=== PATIENT | male | born 1950 | race Caucasian/White ===

== ENCOUNTER 2022-05-26 11:46 | Inpatient (IN) | payer MEDICARE, OTHER ==
[~2022-05-26] VITALS: Ht 167.6 cm; Wt 55.3 kg
--- NOTE | 2022-05-26 12:14 | NUR ---
PT IS IN ROOM #1A. DR FOWLER EVALUATED THE PT.
[2022-05-26 12:31] LABS: HEMATOCRIT 41.8 % (36.7-47.1); MEAN CORPUSCULAR HEMOGLOBIN 31.6 uug (23.8-33.4); PLATELET COUNT (AUTO) 232 K/uL (152-348)
[2022-05-26 12:42] LABS: CARBON DIOXIDE 36 mmol/L (21-32); CHLORIDE 114 mmol/L (98-107); GLUCOSE 114 mg/dL (74-106); POTASSIUM 3.5 mmol/L (3.5-5.1); UREA NITROGEN, BLOOD 35 mg/dL (7-18)
[2022-05-26 12:47] LABS: ALANINE AMINOTRANSFERASE 8 U/L (16-63); ALKALINE PHOSPHATASE 62 U/L (50-136); ASPARTATE AMINOTRANSFERASE 12 U/L (15-37); BILIRUBIN,DIRECT 0.2 mg/dL (0.0-0.2); BILIRUBIN,TOTAL 0.6 mg/dL (0.2-1.0); TOTAL PROTEIN, SERUM 7.8 g/dL (6.4-8.2)
[2022-05-26 12:55] LABS: THYROID STIMULATING HORMONE 1.588 mIU/mL (0.358-3.740)
[2022-05-26] MEDS ORDERED: ATOR10TA PO (13:11)
[2022-05-26] MEDS ORDERED: KEPPRA 100 MG/ML PO (13:11)
[2022-05-26] MEDS ORDERED: LOSA50TA39 PO (13:11)
[2022-05-26] MEDS ORDERED: ACET-2154 PO (13:11)
[2022-05-26] MEDS ORDERED: MEMA10TA PO (13:11)
[2022-05-26] MEDS ORDERED: ACET-73 PO (13:11)
[2022-05-26] MEDS ORDERED: DOCU-141 PO (13:11)
[2022-05-26] MEDS ORDERED: CRAN425C6 PO (13:11)
[2022-05-26] MEDS ORDERED: DIPH25CA83 PO (13:11)
[2022-05-26] MEDS ORDERED: DEXT15DR6 EACHEYE (13:11)
[2022-05-26] MEDS ORDERED: AMIN30LI2 PO (13:11)
[2022-05-26] MEDS ORDERED: DIVA125C2 PO (13:11)
--- NOTE | 2022-05-26 15:28 | NUR ---
REPORT WAS GIVEN TO FIELD ASSEMBLY SUPERVISOR. PT WAS TRANSFERED TO ROOM #201A.
[2022-05-26 17:00] VITALS: BP 140/79
--- NOTE | 2022-05-26 19:00 | NUR ---
Received patient in bed confused, non verbal, no sob no chest pain, tele monitor sinus rhythm at this time, cont to monitor.
[2022-05-26] MEDS ORDERED: JEVITY 1.2 1000 ML LIQUID GT PRN (20:30)
[2022-05-26] MEDS ORDERED: IV NS 1000 ML 1,000 ML IV SCH (20:30)
[2022-05-26 21:00] VITALS: BP 134/74
[2022-05-26] MEDS ORDERED: VANCOMYCIN IV 1,000 MG in IV DEXTROSE 5% 250 ML IV SCH (21:00)
[2022-05-26] MEDS ORDERED: ACETAMINOPHEN 650 MG/20.3 ML LIQUID UDC GT PRN (21:00)
--- NOTE | 2022-05-26 21:11 | NUR ---
Dr Mendiola called the station and give admission order.
[2022-05-26] MEDS ORDERED: VANCOMYCIN IV 200 ML ONE (22:12)
[2022-05-26] MEDS ORDERED: PIPERACILLIN/TAZOBACTAM/D5W 50 ML IV ONE ×2 (22:14→22:15)
[2022-05-26] MEDS: MEMANTINE HCL 5 MG TABLET NG SCH (22:39)
[2022-05-26] MEDS: VALPROIC ACID 250 MG/5 ML LIQUID UDC NG SCH (22:39)
[2022-05-26] MEDS: ATORVASTATIN 10 MG TABLET NG SCH (22:39)
[2022-05-26] MEDS: PIPERACILLIN SODIUM/TAZOBACTAM 3.375 G in IV DEXTROSE 5% 50 ML IV SCH (22:45)
[2022-05-27 01:00] VITALS: BP 135/77
[2022-05-27] MEDS: PIPERACILLIN SODIUM/TAZOBACTAM 3.375 G in IV DEXTROSE 5% 50 ML IV SCH ×3 (05:28→18:06)
[2022-05-27 05:49] VITALS: BP 139/76
--- NOTE | 2022-05-27 06:24 | NUR ---
PATIENT AWAKE BUT NON VERBAL, ABLE TO FOLLOW INSTRUCTIONS, HOB ELEVATED, NGT WITH JEVITY 1.2 AT 30ML PER HOUR TOLERATE WELL NO NAUSEA NO VOMITING, NO DIARRHEA NOTED, NGT INSERTION TOLERATE WELL, CXR DONE PRIOR FEEDING AND FLUSHING OF WATER. PATIENT HAS BM, VOIDING WELL, NO S/S OF ACUTE PAIN, TELE SINUS RHYTHM, CONT TO MONITOR.
[2022-05-27] MEDS: PROTEIN SUPPLEMENT (PROSTAT) 30 ML LIQUID NG SCH (08:00)
[2022-05-27] MEDS ORDERED: LOSARTAN POTASSIUM 50 MG TABLET NG SCH (09:00)
[2022-05-27] MEDS: levETIRAcetam 500 MG/5 ML LIQUID UDC NG SCH ×2 (09:59→21:00)
[2022-05-27] MEDS: VANCOMYCIN IV 750 MG in IV DEXTROSE 5% 250 ML IV SCH ×2 (10:00→21:00)
[2022-05-27] MEDS: MEMANTINE HCL 5 MG TABLET NG SCH ×2 (10:00→21:01)
[2022-05-27] MEDS: DOCUSATE SODIUM 100 MG/10 ML LIQUID UDC NG SCH (10:00)
[2022-05-27] MEDS: VALPROIC ACID 250 MG/5 ML LIQUID UDC NG SCH ×2 (10:00→21:00)
[2022-05-27] MEDS: LOSARTAN POTASSIUM 50 MG TABLET NG SCH ×2 (10:04→17:59)
[2022-05-27 11:23] VITALS: BP 139/70
[2022-05-27] MEDS ORDERED: ACETAMINOPHEN 325 MG TABLET-SA PATIENTS-PAIN ONLY PO PRN (13:45)
[2022-05-27] MEDS ORDERED: Medication Not On Formulary EA (Amino Acids/Protein Hydrolys (Pro-Stat Liquid) 30 ML) PO SCH (13:45)
[2022-05-27] MEDS ORDERED: DIVALPROEX SPRINKLE 125 MG CAP.SPRINK PO SCH (13:45)
[2022-05-27] MEDS ORDERED: MEMANTINE HCL 10 MG TABLET PO SCH (13:45)
[2022-05-27] MEDS ORDERED: diphenhydrAMINE 25 MG CAP PO PRN (13:45)
[2022-05-27] MEDS ORDERED: DOCUSATE SODIUM 100 MG CAPSULE PO SCH (13:45)
[2022-05-27] MEDS ORDERED: Medication Not On Formulary EA (Cranberry Extract (Cranberry) 425 MG) PO SCH (13:45)
[2022-05-27] MEDS ORDERED: LEVETIRACETAM PO SCH (13:45)
[2022-05-27] MEDS ORDERED: LOSARTAN POTASSIUM 50 MG TABLET PO SCH (13:45)
[2022-05-27] MEDS ORDERED: ATORVASTATIN 10 MG TABLET PO SCH (13:45)
[2022-05-27 15:11] VITALS: BP 108/57
[2022-05-27 15:22] LABS: MEAN CORPUSCULAR HEMOGLOBIN 31.8 uug (23.8-33.4); MEAN CORPUSCULAR VOLUME 98.7 fL (73.0-96.2); PLATELET COUNT (AUTO) 181 K/uL (152-348)
[2022-05-27 15:35] LABS: CARBON DIOXIDE 34 mmol/L (21-32); CHLORIDE 115 mmol/L (98-107); CREATININE 0.7 mg/dL (0.6-1.3); GLUCOSE 111 mg/dL (74-106); UREA NITROGEN, BLOOD 26 mg/dL (7-18)
[2022-05-27 15:39] LABS: MAGNESIUM 1.9 mg/dL (1.8-2.4); PHOSPHOROUS 2.8 mg/dL (2.5-4.9)
[2022-05-27] MEDS: ASPIRIN EC 81 MG TABLET.DR PO SCH (16:24)
[2022-05-27] MEDS: POLYVINYL ALCOHOL OPHT DROPS 15 ML BOTTLE EACHEYE SCH (17:00)
[2022-05-27 20:00] VITALS: BP 128/71
[2022-05-27] MEDS ORDERED: POTASSIUM CHLORIDE 20 MEQ POWDER PACKET GT ONE (20:00)
--- NOTE | 2022-05-27 20:23 | NUR ---
Patient stable tolerating ng feed.More alert this pm
[2022-05-27] MEDS: ATORVASTATIN 10 MG TABLET NG SCH (21:01)
[2022-05-28] VITALS: BP 116/86
[2022-05-28] MEDS: PIPERACILLIN SODIUM/TAZOBACTAM 3.375 G in IV DEXTROSE 5% 50 ML IV SCH ×4 (00:05→17:16)
[2022-05-28] MEDS: IV NS 1000 ML 1,000 ML IV PRN (00:08)
--- NOTE | 2022-05-28 03:14 | NUR ---
NGT intact and patent. Increased feedings to 50 ml/hr. Goal reached. No residual noted. Able to tolerate feedings. Administered antibiotics as ordered. No adverse reaction noted. Wound dressing changed. Awaiting wound consult. Kept clean and dry. Turned q2h. All needs attended. Will continue to monitor.
[2022-05-28 04:00] VITALS: BP 124/67
[2022-05-28] MEDS: PROTEIN SUPPLEMENT (PROSTAT) 30 ML LIQUID NG SCH (08:00)
[2022-05-28 08:45] LABS: CARBON DIOXIDE 33 mmol/L (21-32); CHLORIDE 114 mmol/L (98-107); CREATININE 0.6 mg/dL (0.6-1.3); GLUCOSE 123 mg/dL (74-106); POTASSIUM 3.5 mmol/L (3.5-5.1); UREA NITROGEN, BLOOD 21 mg/dL (7-18); VANCOMYCIN,TROUGH 20.1 ug/mL (12.0-20.0)
[2022-05-28] MEDS: MEMANTINE HCL 5 MG TABLET NG SCH ×2 (09:27→21:39)
[2022-05-28] MEDS: ASPIRIN EC 81 MG TABLET.DR PO SCH (09:27)
[2022-05-28] MEDS: levETIRAcetam 500 MG/5 ML LIQUID UDC NG SCH ×2 (09:27→21:39)
[2022-05-28] MEDS: VALPROIC ACID 250 MG/5 ML LIQUID UDC NG SCH ×2 (09:27→21:39)
[2022-05-28] MEDS: DOCUSATE SODIUM 100 MG/10 ML LIQUID UDC NG SCH (09:27)
[2022-05-28] MEDS: LOSARTAN POTASSIUM 50 MG TABLET NG SCH ×2 (09:28→17:21)
[2022-05-28] MEDS: POLYVINYL ALCOHOL OPHT DROPS 15 ML BOTTLE EACHEYE SCH ×2 (09:37→17:17)
[2022-05-28 11:48] VITALS: BP 125/70
[2022-05-28] MEDS ORDERED: POTASSIUM CHLORIDE 20 MEQ POWDER PACKET PO ONE (15:00)
[2022-05-28 16:00] VITALS: BP 92/58
[2022-05-28] MEDS: VANCOMYCIN IV 750 MG in IV DEXTROSE 5% 250 ML IV SCH (16:17)
--- NOTE | 2022-05-28 19:09 | NUR ---
PT STABLE TOLERATING FEED MINIMAL RESIDUAL PER DIETITIAN THERE IS NEED TO INCREASE CALORIES BUT NEED TX FOR ELEVATEDE BLOOD SUGARS. SPOKE WITH DR DEJESUS SAID HE IS NOT MAKING ANY CHANGES BLOOD GLUCOSE IS UNDER 150. SO DIETITIAN CAN GO AHEAD AND MAKE THE NEEDED CHANGES.
[2022-05-28 20:00] VITALS: BP 110/63
[2022-05-28] MEDS: ATORVASTATIN 10 MG TABLET NG SCH (21:40)
[2022-05-29] MEDS: PIPERACILLIN SODIUM/TAZOBACTAM 3.375 G in IV DEXTROSE 5% 50 ML IV SCH ×4 (00:03→19:07)
[2022-05-29] MEDS: VANCOMYCIN IV 750 MG in IV DEXTROSE 5% 250 ML IV SCH ×2 (05:25→19:57)
[2022-05-29 07:36] LABS: HEMATOCRIT 29.3 % (36.7-47.1); MEAN CORPUSCULAR HEMOGLOBIN 32.2 uug (23.8-33.4); MEAN CORPUSCULAR VOLUME 98.1 fL (73.0-96.2); PLATELET COUNT (AUTO) 162 K/uL (152-348)
--- NOTE | 2022-05-29 08:00 | NUR ---
Received pt in bed awake, with ongoing IVF NS @ 40ml/hr at R UA g.20 infusing well. NPO with NGT on Jevity 1.2. SR on tele monitor at 98 bpm, on room air saturating at 96-98%. Observed patient accordingly
[2022-05-29 08:20] LABS: CREATININE 0.7 mg/dL (0.6-1.3); MAGNESIUM 1.7 mg/dL (1.8-2.4); PHOSPHOROUS 1.8 mg/dL (2.5-4.9); POTASSIUM 3.6 mmol/L (3.5-5.1)
--- NOTE | 2022-05-29 08:24 | NUR ---
WOUND CARE CONSULT: PT PRESENTS WITH CACHEXIA, RT HIP SCARRING, LEFT HIP STAGE 2 ULCER AND SACRAL DEEP TISSUE INJURY, ALL PRESENT ON ADMISSION. RECOMMENDATIONS MADE FOR SKIN PROTECTION INCLUDING FIRST STEP LOW AIRLOSS MATTRESS. DISCUSSED WITH NURSING STAFF. DR RODRIGUEZ CALLED FOR SURGICAL CONSULT. IN AGREEMENT WITH PLAN OF CARE. Addendum: 05/29/22 at 1035 by RUBA PAUL RN Amended: Links added.
[2022-05-29] MEDS ORDERED: REMEDY ESSENTIAL ZINC PASTE 113 GM TOP PRN (08:30)
[2022-05-29] MEDS ORDERED: ASPIRIN 81 MG TAB.CHEW GT SCH (09:00)
--- NOTE | 2022-05-29 09:00 | NUR ---
Seen and examined by critical care nurse specialist made new order and recommendations. Wound care, dressing and linen change done. Inserted condom catheter. Feeding and medication through NGT tolerated well. Keep monitored.
[2022-05-29] MEDS: MEMANTINE HCL 5 MG TABLET NG SCH ×2 (09:20→20:05)
[2022-05-29] MEDS: POLYVINYL ALCOHOL OPHT DROPS 15 ML BOTTLE EACHEYE SCH ×2 (09:20→17:43)
[2022-05-29] MEDS: VALPROIC ACID 250 MG/5 ML LIQUID UDC NG SCH ×2 (09:21→20:05)
[2022-05-29] MEDS: levETIRAcetam 500 MG/5 ML LIQUID UDC NG SCH ×2 (09:21→20:05)
[2022-05-29] MEDS: DOCUSATE SODIUM 100 MG/10 ML LIQUID UDC NG SCH (09:21)
[2022-05-29] MEDS: LOSARTAN POTASSIUM 50 MG TABLET NG SCH ×2 (09:26→17:42)
[2022-05-29] MEDS: IV NS 1000 ML 1,000 ML IV PRN (09:26)
[2022-05-29] MEDS: REMEDY ESSENTIAL ZINC PASTE 113 GM TOP SCH ×2 (09:49→20:05)
[2022-05-29] MEDS: PROTEIN SUPPLEMENT (PROSTAT) 30 ML LIQUID NG SCH (09:49)
[2022-05-29] MEDS: CLOTRIMAZOLE 1% CREAM 30 GM TUBE TOP SCH ×2 (09:49→17:43)
[2022-05-29] MEDS: MAGNESIUM SULFATE/D5W 100 ML IV SCH ×2 (10:03→11:01)
[2022-05-29 11:57] VITALS: BP 111/66
[2022-05-29] MEDS ORDERED: POTASSIUM PHOSPHATE MM 15 MMOL in IV NORMAL SALINE 250 ML IV ONE ×2 (12:00→12:30)
[2022-05-29 16:00] VITALS: BP 115/62
[2022-05-29] MEDS: JEVITY 1.2 1000 ML LIQUID GT PRN (17:52)
--- NOTE | 2022-05-29 19:35 | NUR ---
Received patient in bed, response of tactile stimuli, hob elevated no sob no chest pain noted, still with ngt tolerate well no residual, no n/v noted, turn and reposition, condom cath patent draining with yellow color urine in moderate amount, cont to monitor.
[2022-05-29 20:00] VITALS: BP 112/67
[2022-05-29] MEDS: ATORVASTATIN 10 MG TABLET NG SCH (20:05)
[2022-05-30] VITALS: BP 112/64
[2022-05-30] MEDS: PIPERACILLIN SODIUM/TAZOBACTAM 3.375 G in IV DEXTROSE 5% 50 ML IV SCH ×5 (00:10→23:47)
[2022-05-30 04:00] VITALS: BP 116/66
--- NOTE | 2022-05-30 04:24 | NUR ---
Patient asleep but arousable, hob elevated, NGT tolerate well, no n/v no diarrhea, no residual noted, no s/s of pain or discomfort, kept clean dry and comfortable, tele sinus rhythm at this time, cont to monitor.
[2022-05-30 07:45] LABS: HEMATOCRIT 28.9 % (36.7-47.1); MEAN CORPUSCULAR HEMOGLOBIN 32.6 uug (23.8-33.4); PLATELET COUNT (AUTO) 150 K/uL (152-348)
[2022-05-30 07:50] LABS: CREATININE 0.6 mg/dL (0.6-1.3); POTASSIUM 3.7 mmol/L (3.5-5.1); VANCOMYCIN,TROUGH 18.7 ug/mL (12.0-20.0)
[2022-05-30] MEDS: PROTEIN SUPPLEMENT (PROSTAT) 30 ML LIQUID NG SCH (08:00)
[2022-05-30 08:30] LABS: MAGNESIUM 2.1 mg/dL (1.8-2.4); PHOSPHOROUS 2.7 mg/dL (2.5-4.9)
--- NOTE | 2022-05-30 08:52 | NUR ---
PER DIETARY PROSTAT STILL OUT OF STOCK
[2022-05-30] MEDS: MEMANTINE HCL 5 MG TABLET NG SCH ×2 (08:54→21:48)
[2022-05-30] MEDS: LOSARTAN POTASSIUM 50 MG TABLET NG SCH ×2 (08:54→17:16)
[2022-05-30] MEDS: VALPROIC ACID 250 MG/5 ML LIQUID UDC NG SCH ×2 (08:54→21:47)
[2022-05-30] MEDS: CLOTRIMAZOLE 1% CREAM 30 GM TUBE TOP SCH ×2 (08:55→17:16)
[2022-05-30] MEDS: POLYVINYL ALCOHOL OPHT DROPS 15 ML BOTTLE EACHEYE SCH ×2 (08:55→17:15)
[2022-05-30] MEDS: levETIRAcetam 500 MG/5 ML LIQUID UDC NG SCH ×2 (08:55→21:48)
[2022-05-30] MEDS: DOCUSATE SODIUM 100 MG/10 ML LIQUID UDC NG SCH (08:55)
[2022-05-30] MEDS: REMEDY ESSENTIAL ZINC PASTE 113 GM TOP SCH ×2 (08:56→22:12)
[2022-05-30] MEDS: VANCOMYCIN IV 750 MG in IV DEXTROSE 5% 250 ML IV SCH ×2 (10:02→23:29)
[2022-05-30 12:00] VITALS: BP 119/64
--- NOTE | 2022-05-30 12:08 | NUR ---
wound tx done. applied optiform to prominent bony area for protection.
[2022-05-30 16:00] VITALS: BP 118/71
[2022-05-30 18:13] LABS: HEMATOCRIT 32.9 % (36.7-47.1)
--- NOTE | 2022-05-30 19:35 | NUR ---
pt is sleeping but arousable. no acute distress noted. wound tx done. applied foam dressing to prominent pressure area for protection. pt tolerated gtube feeding; no residual. pt on condom cath. had 3 loose bm today. still on abx tx. reposition q2hr. heel float. scd pump in placed. oral care done q2hr. all need attended. call ling in bedside. bed locked. safety measure in placed. will endorsed to noc shift.
--- NOTE | 2022-05-30 20:00 | NUR ---
Received patient in bed eyes open, respond to tactile stimuli, hob elevated, no n/v noted, no diarrhea, no residual noted, tolerate feeding. Patient has no s/s of pain nor discomfort, condom cath patent, draining with yellow color urine in moderate amount, tele sinus rhythm cont to monitor.
[2022-05-30] MEDS: ATORVASTATIN 10 MG TABLET NG SCH (21:48)
[2022-05-30] MEDS: JEVITY 1.2 1000 ML LIQUID GT PRN (22:00)
[2022-05-31 00:13] VITALS: BP 139/79
[2022-05-31 04:18] VITALS: BP 119/69
[2022-05-31] MEDS: IV NS 1000 ML 1,000 ML IV PRN (04:35)
[2022-05-31] MEDS: PIPERACILLIN SODIUM/TAZOBACTAM 3.375 G in IV DEXTROSE 5% 50 ML IV SCH ×4 (05:08→23:37)
[2022-05-31 06:39] LABS: HEMATOCRIT 30.2 % (36.7-47.1); MEAN CORPUSCULAR HEMOGLOBIN 32.4 uug (23.8-33.4); MEAN CORPUSCULAR VOLUME 98.7 fL (73.0-96.2); PLATELET COUNT (AUTO) 147 K/uL (152-348)
[2022-05-31 07:03] LABS: CREATININE 0.6 mg/dL (0.6-1.3); MAGNESIUM 1.8 mg/dL (1.8-2.4); PHOSPHOROUS 2.4 mg/dL (2.5-4.9); POTASSIUM 3.6 mmol/L (3.5-5.1)
[2022-05-31] MEDS: PROTEIN SUPPLEMENT (PROSTAT) 30 ML LIQUID NG SCH (08:00)
--- NOTE | 2022-05-31 09:00 | NUR ---
AWAKE NON VERBAL AT THIS TIME ALL NEEDS ANTICIPATED AND SATISFIED MAX ASSIST FOR ALL ADL ON FIRST STEP DEBORA REPOSITIONED FOR COMFORT NGT REMAINS INTACT WITH FEEDINGS ORDERED WITH ONLY 5 ML GASTRIC RESIDUAL PLACEMENT CHECKED REMAIN ON IVF AND FLUID FLUSHES AND MARY WELL MADE COMFORTABLE WILL CONTINUE TO OBSERVE.
[2022-05-31] MEDS: VALPROIC ACID 250 MG/5 ML LIQUID UDC NG SCH ×2 (09:11→20:14)
[2022-05-31] MEDS: DOCUSATE SODIUM 100 MG/10 ML LIQUID UDC NG SCH (09:11)
[2022-05-31] MEDS: levETIRAcetam 500 MG/5 ML LIQUID UDC NG SCH ×2 (09:12→20:14)
[2022-05-31] MEDS: MEMANTINE HCL 5 MG TABLET NG SCH ×2 (09:13→20:14)
[2022-05-31] MEDS: LOSARTAN POTASSIUM 50 MG TABLET NG SCH ×2 (09:15→16:33)
[2022-05-31] MEDS: POLYVINYL ALCOHOL OPHT DROPS 15 ML BOTTLE EACHEYE SCH ×2 (09:20→16:23)
[2022-05-31] MEDS: REMEDY ESSENTIAL ZINC PASTE 113 GM TOP SCH ×2 (09:21→21:03)
[2022-05-31] MEDS: CLOTRIMAZOLE 1% CREAM 30 GM TUBE TOP SCH ×2 (09:21→16:34)
[2022-05-31 12:00] VITALS: BP 110/63
[2022-05-31] MEDS: VANCOMYCIN IV 750 MG in IV DEXTROSE 5% 250 ML IV SCH (14:04)
[2022-05-31] MEDS ORDERED: POTASSIUM PHOSPHATE MM 15 MMOL in IV NORMAL SALINE 250 ML IV ONE (15:15)
[2022-05-31] MEDS ORDERED: DOCU50LI NG (15:24)
[2022-05-31] MEDS ORDERED: ATOR10TA NG (15:24)
[2022-05-31] MEDS ORDERED: CLOT30CR24 TOP (15:24)
[2022-05-31] MEDS ORDERED: VANC750F2 IV (15:25)
[2022-05-31] MEDS ORDERED: MEMA5TAB42 NG (15:25)
[2022-05-31] MEDS ORDERED: LACT-209 GT (15:25)
[2022-05-31] MEDS ORDERED: VALP250S22 NG (15:25)
[2022-05-31] MEDS ORDERED: LEVE100S NG (15:25)
[2022-05-31] MEDS ORDERED: LOSA50TA3 NG (15:25)
[2022-05-31] MEDS ORDERED: PIPE3.379 IV (15:25)
[2022-05-31] MEDS ORDERED: MENT113O TOP ×2 (15:25)
[2022-05-31] MEDS ORDERED: POLY15DR27 EACHEYE (15:25)
[2022-05-31] MEDS ORDERED: PROT30LI NG (15:25)
[2022-05-31] MEDS ORDERED: RXVAN XX (15:25)
[2022-05-31 17:00] VITALS: BP 121/66
--- NOTE | 2022-05-31 18:00 | NUR ---
D/C PLANNING FOR TOMORROW PER ATTACHIES ORDERS NOT IN DISTRESS AT THIS TIME.
[2022-05-31 19:30] VITALS: BP 111/70
--- NOTE | 2022-05-31 19:40 | NUR ---
Received Pt from Day shift. Pt is A&Ox0-1 and is under no S&S of distress. NG tube intact. SR on tele. Pt on Rm Air. Was made aware of D/C planning tomorrow. Safety measures in place. Will continue to monitor.
[2022-05-31] MEDS: ATORVASTATIN 10 MG TABLET NG SCH (20:14)
[2022-06-01 00:02] VITALS: BP 117/70
[2022-06-01] MEDS: PIPERACILLIN SODIUM/TAZOBACTAM 3.375 G in IV DEXTROSE 5% 50 ML IV SCH ×3 (00:17→11:18)
[2022-06-01] MEDS: VANCOMYCIN IV 750 MG in IV DEXTROSE 5% 250 ML IV SCH (02:09)
--- NOTE | 2022-06-01 03:46 | NUR ---
Documented pictures of Pt's left hip wound, sacrum wound, & right hip wound on 06/01 at 0330. Found no earlier pictures of these wounds in pt's chart. Safety measures in place. Will continue to monitor.
[2022-06-01 04:16] VITALS: BP 118/64
[2022-06-01] MEDS: JEVITY 1.2 1000 ML LIQUID GT PRN (04:27)
[2022-06-01 06:18] LABS: HEMATOCRIT 27.8 % (36.7-47.1); MEAN CORPUSCULAR HEMOGLOBIN 32.1 uug (23.8-33.4); MEAN CORPUSCULAR VOLUME 98.1 fL (73.0-96.2); PLATELET COUNT (AUTO) 154 K/uL (152-348)
--- NOTE | 2022-06-01 06:28 | NUR ---
End of Shift Note: Pt is A&Ox0 and is under no S&S of distress. NG tube intact. SR on tele. Pt on Rm Air. Pt's weight is 122 lbs, but air mattress was still under pt. Unsure if bed was zeroed out with air mattress. Took pictures of pt's wound on r. hip, l. hip, and sacrum and placed them in pt's chart. Safety measures in place. Will continue to monitor.
[2022-06-01 06:40] LABS: CREATININE 0.6 mg/dL (0.6-1.3); PHOSPHOROUS 3.1 mg/dL (2.5-4.9); POTASSIUM 3.7 mmol/L (3.5-5.1)
--- NOTE | 2022-06-01 07:30 | NUR ---
PATIENT REMAINS NON VERBAL WITH EYE CLOSED AT ALL TIMES, FACIAL GRIMACE NOTED WITH DEEP TACTILE/PAINFUL STIMULI, NO SS OF PAIN OR DISTRESS RA SATS 97% ON RA. NGT IN PLACED FOR FEEDING. TOLERATING JEVITY 1.2 AT 60 MLS/HR. CONTINUE WITH IV ANTIBIOTIC NO REACTION NOTED. SR ON MONITOR
[2022-06-01 07:42] LABS: MAGNESIUM 1.9 mg/dL (1.8-2.4)
[2022-06-01] MEDS: VALPROIC ACID 250 MG/5 ML LIQUID UDC NG SCH (08:28)
[2022-06-01] MEDS: levETIRAcetam 500 MG/5 ML LIQUID UDC NG SCH (08:28)
[2022-06-01] MEDS: LOSARTAN POTASSIUM 50 MG TABLET NG SCH (08:28)
[2022-06-01] MEDS: MEMANTINE HCL 5 MG TABLET NG SCH (08:28)
[2022-06-01] MEDS: DOCUSATE SODIUM 100 MG/10 ML LIQUID UDC NG SCH (08:29)
[2022-06-01] MEDS: POLYVINYL ALCOHOL OPHT DROPS 15 ML BOTTLE EACHEYE SCH (08:29)
[2022-06-01] MEDS: PROTEIN SUPPLEMENT (PROSTAT) 30 ML LIQUID NG SCH (08:29)
[2022-06-01] MEDS: CLOTRIMAZOLE 1% CREAM 30 GM TUBE TOP SCH (08:29)
[2022-06-01] MEDS: REMEDY ESSENTIAL ZINC PASTE 113 GM TOP SCH (08:30)
[2022-06-01 11:40] VITALS: BP 122/70
--- NOTE | 2022-06-01 12:05 | NUR ---
NO ACUTE CHANGE FROM MORNING ASSESSMENT. TOLERATING FEEDING WELL. DC PLANNING IN PROGRESS
--- NOTE | 2022-06-01 15:10 | NUR ---
DISCHARGED BACK TO [facility], REPORT GIVEN TO STACY LEONARDO.
== END 2022-06-01 15:00 | DRG 177 ==
LOC: ER 11:46 → TELE 15:12 → TELE3 18:03
PROVIDERS: ADMIT Internal Medicine; ATTEND Internal Medicine
DX: J69.0 Pneumonitis due to inhalation of food and vomit (principal); G93.41 Metabolic encephalopathy; E87.0 Hyperosmolality and hypernatremia; E44.1 Mild protein-calorie malnutrition; Z68.1 Body mass index [BMI] 19.9 or less, adult; Z20.822 Contact with and (suspected) exposure to COVID-19; E86.0 Dehydration; G30.9 Alzheimer's disease, unspecified; F02.80 Dementia in other diseases classified elsewhere, unspecified severity, without behavioral disturbance, psychotic disturbance, mood disturbance, and anxiety; G40.909 Epilepsy, unspecified, not intractable, without status epilepticus; I10 Essential (primary) hypertension; I25.10 Atherosclerotic heart disease of native coronary artery without angina pectoris; K21.9 Gastro-esophageal reflux disease without esophagitis; Z86.16 Personal history of COVID-19; E87.6 Hypokalemia; L89.222 Pressure ulcer of left hip, stage 2; M24.521 Contracture, right elbow; L90.5 Scar conditions and fibrosis of skin; L89.156 Pressure-induced deep tissue damage of sacral region; R62.7 Adult failure to thrive; F20.9 Schizophrenia, unspecified; Z79.82 Long term (current) use of aspirin; R77.8 Other specified abnormalities of plasma proteins
CPT/HCPCS: 36415; 70450; 71045; 83735; 84100; 84443; 84484; 85018; 85025; 85730; 87040; 93005; 93307; A4663; A6209; A6213; G0378; J2543; J3370; J3475; J3490; J7040; J7050